=== PATIENT | female | born 1985 | race Asian ===

== ENCOUNTER 2018-12-24 00:56 | Inpatient (IN) | payer OTHER ==
[~2018-12-24] VITALS: Ht 152.4 cm; Wt 64.1 kg
[2018-12-24] MEDS ORDERED: NEWBORN KIT ONE (01:08)
[2018-12-24] MEDS ORDERED: OXYTOCIN 30U/ 0.9% NaCL 500ML 500 ML ONE (01:08)
[2018-12-24] MEDS ORDERED: MISOPROSTOL 200 MCG TABLET ONE (01:09)
[2018-12-24] MEDS ORDERED: LIDOCAINE 1%, 10ML ONE (01:09)
[2018-12-24] MEDS ORDERED: OXYTOCIN 30U/ 0.9% NaCL 500ML 500 ML IV ONE (01:11)
[2018-12-24] MEDS ORDERED: D5%-LACTATED RINGERS 1,000 ML IV SCH (01:11)
[2018-12-24] MEDS: LACTATED RINGERS 1,000 ML IV SCH ×3 (01:22→02:37)
[2018-12-24 01:25] VITALS: BP 129/87
[2018-12-24] MEDS ORDERED: ONDANSETRON 2MG/ML, 2ML IVPush PRN (01:30)
[2018-12-24] MEDS ORDERED: METOCLOPRAMIDE 5 MG/ML, 2ML IVPush PRN (01:30)
[2018-12-24] MEDS ORDERED: FENTANYL PF 100 MCG/2ML IV PRN (01:30)
[2018-12-24] MEDS ORDERED: PENICILLIN GK 5,000,000 UNITS in DEXTROSE 5% 100 ML IVPB ONE (01:30)
[2018-12-24] MEDS ORDERED: SODIUM CITRATE/CITRIC ACID 15 ML UDC PO PRN (01:30)
[2018-12-24] MEDS ORDERED: CALCIUM CARBONATE 500 MG TAB.CHEW PO PRN ×2 (01:30→05:30)
[2018-12-24] MEDS ORDERED: TERBUTALINE 1 MG/ML, 1ML IVPush PRN ×2 (01:30)
[2018-12-24] MEDS ORDERED: FENTANYL PF 100 MCG/2ML IVPush PRN (01:30)
[2018-12-24] MEDS ORDERED: TERBUTALINE 1 MG/ML, 1ML SQ PRN (01:30)
[2018-12-24] MEDS ORDERED: ALUMINUM/MAG/SIMETHICONE 30 ML UDC PO PRN (01:30)
[2018-12-24 01:32] LABS: BASOPHILS # (AUTO) 0.02 x10^3/uL (0-0.1); BASOPHILS % (AUTO) 0 % (0-1); EOSINOPHILS # (AUTO) 0.04 x10^3/uL (0-0.4); EOSINOPHILS % (AUTO) 1 % (1-7); LYMPHOCYTES # (AUTO) 1.22 x10^3/uL (1-3.4); LYMPHOCYTES % (AUTO) 19 % (22-44); MD NO; MEAN CORPUSCULAR HEMOGLOBIN 30.2 pg (27.0-34.8); MEAN CORPUSCULAR HGB CONC 33.9 g/dL (32.4-35.8); MEAN CORPUSCULAR VOLUME 89.1 fL (80-100); MEAN PLATELET VOLUME 10.3 fL (7.4-10.4); MONOCYTES # (AUTO) 0.48 x10^3/uL (0.2-0.8); MONOCYTES % (AUTO) 7 % (2-9); NEUTROPHILS # (AUTO) 4.75 x10^3/uL (1.8-6.8); NEUTROPHILS % (AUTO) 73 % (42-75); PLATELET COUNT 184 x10^3/uL (130-400); RED BLOOD COUNT 4.13 x10^6/uL (3.82-5.3); RED CELL DISTRIBUTION WIDTH 13.9 % (9.6-15.2)
[2018-12-24] MEDS ORDERED: FENTANYL/BUPIV./NS/PF 250 ML EPIDCONT ONE (01:44)
[2018-12-24] MEDS ORDERED: LACTATED RINGERS 1,000 ML IV SCH (01:53)
[2018-12-24] MEDS ORDERED: FENTANYL/BUPIV./NS/PF 250 ML EPIDCONT SCH (01:53)
[2018-12-24] MEDS ORDERED: BUPIVACAINE 0.25% ONE (01:56)
[2018-12-24] MEDS ORDERED: NALOXONE 0.4 MG/ML, 1ML IVPush PRN (02:00)
[2018-12-24] MEDS ORDERED: LACTATED RINGERS 1,000 ML IVBOLUS PRN (02:00)
[2018-12-24] MEDS ORDERED: EPHEDRINE 50 MG/ML, 1ML IVPush PRN (02:00)
[2018-12-24] MEDS: OXYTOCIN 30U/ 0.9% NaCL 500ML 500 ML IV SCH ×2 (05:04→15:04)
[2018-12-24] MEDS ORDERED: MISOPROSTOL 200 MCG TABLET PR PRN (05:30)
[2018-12-24] MEDS ORDERED: OXYcodone/APAP 5/325MG TABLET PO PRN (05:30)
[2018-12-24] MEDS ORDERED: IBUPROFEN 600 MG TABLET PO PRN (05:30)
[2018-12-24] MEDS ORDERED: MAGNESIUM HYDROXIDE 8%, 30ML UDC PO PRN (05:30)
[2018-12-24] MEDS ORDERED: METHYLERGONOVINE 0.2 MG/ML IM PRN (05:30)
[2018-12-24] MEDS ORDERED: PENICILLIN GK 2,500,000 UNITS in DEXTROSE 5% 100 ML IVPB SCH (05:30)
[2018-12-24 07:30] VITALS: BP 121/72
[2018-12-24] MEDS: DOCUSATE 100 MG CAPSULE PO PRN (09:45)
[2018-12-24] MEDS: PRENATAL VIT/IRON/FA 1 EACH TABLET PO SCH (09:45)
[2018-12-24 12:00] VITALS: BP 120/70
[2018-12-24 12:54] LABS: BASOPHILS # (AUTO) 0.06 x10^3/uL (0-0.1); BASOPHILS % (AUTO) 1 % (0-1); EOSINOPHILS # (AUTO) 0.01 x10^3/uL (0-0.4); EOSINOPHILS % (AUTO) 0 % (1-7); LYMPHOCYTES # (AUTO) 0.76 x10^3/uL (1-3.4); LYMPHOCYTES % (AUTO) 7 % (22-44); MD NO; MEAN CORPUSCULAR HEMOGLOBIN 29.3 pg (27.0-34.8); MEAN CORPUSCULAR HGB CONC 33.2 g/dL (32.4-35.8); MEAN CORPUSCULAR VOLUME 88.4 fL (80-100); MEAN PLATELET VOLUME 10.4 fL (7.4-10.4); MONOCYTES # (AUTO) 0.56 x10^3/uL (0.2-0.8); MONOCYTES % (AUTO) 5 % (2-9); NEUTROPHILS # (AUTO) 9.38 x10^3/uL (1.8-6.8); NEUTROPHILS % (AUTO) 87 % (42-75); PLATELET COUNT 155 x10^3/uL (130-400)
[2018-12-24 16:59] VITALS: BP 122/79
[2018-12-24 19:35] VITALS: BP 110/59
[2018-12-25 00:15] VITALS: BP 104/66
[2018-12-25 08:00] VITALS: BP 116/74
[2018-12-25 20:15] VITALS: BP 120/85
[2018-12-25] MEDS: PRENATAL VIT/IRON/FA 1 EACH TABLET PO SCH (22:43)
[2018-12-26 07:20] VITALS: BP 108/67
[2018-12-26] MEDS: DOCUSATE 100 MG CAPSULE PO PRN (10:02)
[2018-12-26] MEDS: PRENATAL VIT/IRON/FA 1 EACH TABLET PO SCH (10:02)
== END 2018-12-26 11:25 | disposition home or self-care (01) | DRG 807 ==
LOC: LDOP 00:56 → LDIP 01:26 → 2NW 06:22 → EDSTATUS 12-28 00:55
PROVIDERS: ADMIT Obstetrics & Gynecology; ATTEND Obstetrics & Gynecology
PROC: 10E0XZZ Delivery of Products of Conception, External Approach (ICD-10-PCS; principal; 2018-12-25)
PROC: 00HU33Z Insertion of Infusion Device into Spinal Canal, Percutaneous Approach (ICD-10-PCS; 2018-12-25)
PROC: 3E0R3BZ Introduction of Anesthetic Agent into Spinal Canal, Percutaneous Approach (ICD-10-PCS; 2018-12-25)
DX: O99.824 Streptococcus B carrier state complicating childbirth (principal); Z37.0 Single live birth; N89.8 Other specified noninflammatory disorders of vagina; O34.63 Maternal care for abnormality of vagina, third trimester; O10.02 Pre-existing essential hypertension complicating childbirth; Z3A.39 39 weeks gestation of pregnancy; Z80.41 Family history of malignant neoplasm of ovary; Z82.49 Family history of ischemic heart disease and other diseases of the circulatory system; Z83.3 Family history of diabetes mellitus
CPT/HCPCS: 36415; 85025; 86850; 86900; G0378; J2540; J2590; J3010; J7120

== ENCOUNTER 2020-01-09 06:51 | Outpatient (CLI) | payer OTHER | END 2020-01-09 23:59 | disposition home or self-care (01) | LOC: RAD 06:51 | PROVIDERS: ATTEND Obstetrics & Gynecology Maternal & Fetal Medicine | DX: Z3A.34 34 weeks gestation of pregnancy (principal); O32.2XX0 Maternal care for transverse and oblique lie, not applicable or unspecified; O28.3 Abnormal ultrasonic finding on antenatal screening of mother | CPT/HCPCS: 72195 ==

== ENCOUNTER 2020-02-09 05:56 | Inpatient (IN) | payer OTHER ==
[~2020-02-09] VITALS: Ht 152.4 cm; Wt 65.9 kg
[2020-02-09] MEDS ORDERED: OXYTOCIN 30U/ 0.9% NaCL 500ML 500 ML IV ONE (06:11)
[2020-02-09] MEDS: D5%-LACTATED RINGERS 1,000 ML IV SCH ×2 (06:11→14:11)
[2020-02-09] MEDS ORDERED: FENTANYL/BUPIV./NS/PF 250 ML EPIDCONT SCH (06:16)
[2020-02-09] MEDS ORDERED: LIDOCAINE 1%, 20ML ONE (06:20)
[2020-02-09] MEDS: LACTATED RINGERS 1,000 ML IV SCH ×3 (06:20→08:10)
[2020-02-09] MEDS ORDERED: OXYTOCIN 30U/ 0.9% NaCL 500ML 500 ML ONE (06:20)
[2020-02-09] MEDS ORDERED: MISOPROSTOL 200 MCG TABLET ONE (06:20)
[2020-02-09] MEDS ORDERED: NEWBORN KIT ONE (06:20)
[2020-02-09] MEDS ORDERED: TERBUTALINE 1 MG/ML, 1ML IVPush PRN (06:30)
[2020-02-09] MEDS ORDERED: TERBUTALINE 1 MG/ML, 1ML SQ PRN (06:30)
[2020-02-09] MEDS ORDERED: FENTANYL PF 100 MCG/2ML IVPush PRN (06:30)
[2020-02-09] MEDS ORDERED: FENTANYL PF 100 MCG/2ML IV PRN (06:30)
[2020-02-09] MEDS ORDERED: FENTANYL/BUPIV./NS/PF 250 ML EPIDCONT ONE (06:34)
[2020-02-09 06:39] LABS: BASOPHILS # (AUTO) 0.06 x10^3/uL (0-0.1); BASOPHILS % (AUTO) 1 % (0-1); EOSINOPHILS # (AUTO) 0.15 x10^3/uL (0-0.4); EOSINOPHILS % (AUTO) 2 % (1-7); LYMPHOCYTES # (AUTO) 1.18 x10^3/uL (1-3.4); LYMPHOCYTES % (AUTO) 13 % (22-44); MD NO; MEAN CORPUSCULAR HEMOGLOBIN 30.4 pg (27.0-34.8); MEAN CORPUSCULAR HGB CONC 33.4 g/dL (32.4-35.8); MEAN CORPUSCULAR VOLUME 90.9 fL (80-100); MEAN PLATELET VOLUME 10.7 fL (7.4-10.4); MONOCYTES # (AUTO) 0.56 x10^3/uL (0.2-0.8); MONOCYTES % (AUTO) 6 % (2-9); NEUTROPHILS # (AUTO) 7.42 x10^3/uL (1.8-6.8); NEUTROPHILS % (AUTO) 79 % (42-75); PLATELET COUNT 173 x10^3/uL (130-400); RED BLOOD COUNT 3.98 x10^6/uL (3.82-5.3); RED CELL DISTRIBUTION WIDTH 13.8 % (9.6-15.2)
[2020-02-09 06:52] LABS: ALBUMIN 2.4 g/dL (3.4-5.0); CALCIUM 8.9 mg/dL (8.5-10.1); CHLORIDE 108 mmol/L (98-107)
[2020-02-09 06:57] LABS: ALANINE AMINOTRANSFERASE 13 U/L (12-78); ALKALINE PHOSPHATASE 100 U/L (45-117); ANION GAP 8 mmol/L (5-15); BILIRUBIN,TOTAL 0.3 mg/dL (0.2-1.0); CREATININE 0.69 mg/dL (0.55-1.02); TOTAL PROTEIN 6.9 g/dL (6.4-8.2)
[2020-02-09 06:58] LABS: BILIRUBIN, DIRECT < 0.1 mg/dL (0.1-0.2)
[2020-02-09] MEDS ORDERED: BUPIVACAINE 0.25% ONE (07:05)
[2020-02-09] MEDS ORDERED: FENTANYL PF 100 MCG/2ML ONE (07:05)
[2020-02-09] MEDS ORDERED: LIDOCAINE/PF 1.5%-EPI 1:200K, 30ML ONE (07:07)
[2020-02-09] MEDS ORDERED: PENICILLIN GK 5,000,000 UNITS in DEXTROSE 5% 100 ML IVPB ONE (08:00)
[2020-02-09 08:52] LABS: MICROSCOPIC NOT IND
[2020-02-09 09:04] LABS: CREATININE,URINE RANDOM < 13.00 mg/dL; PROTEIN/CREATININE RATIO,URINE < 385 (0-200); TOTAL PROTEIN,URINE RANDOM < 5 mg/dL (0-12)
[2020-02-09] MEDS: OXYTOCIN 30U/ 0.9% NaCL 500ML 500 ML IV SCH ×2 (10:44→20:44)
[2020-02-09] MEDS ORDERED: ONDANSETRON 2MG/ML, 2ML IV PRN (11:00)
[2020-02-09] MEDS ORDERED: MISOPROSTOL 200 MCG TABLET PR PRN (11:00)
[2020-02-09] MEDS ORDERED: IBUPROFEN 600 MG TABLET PO PRN (11:00)
[2020-02-09] MEDS ORDERED: SIMETHICONE 80 MG CHEW TAB PO PRN (11:00)
[2020-02-09] MEDS ORDERED: OXYcodone/APAP 5/325MG TABLET PO PRN (11:00)
[2020-02-09] MEDS ORDERED: OXYcodone IR 5MG TABLET PO PRN (11:00)
[2020-02-09] MEDS ORDERED: ACETAMINOPHEN 325 MG TABLET PO PRN (11:00)
[2020-02-09 13:00] VITALS: BP 128/82
[2020-02-09 17:00] VITALS: BP 100/66
[2020-02-09 20:10] LABS: BASOPHILS # (AUTO) 0.06 x10^3/uL (0-0.1); BASOPHILS % (AUTO) 1 % (0-1); EOSINOPHILS # (AUTO) 0.09 x10^3/uL (0-0.4); EOSINOPHILS % (AUTO) 1 % (1-7); LYMPHOCYTES # (AUTO) 0.94 x10^3/uL (1-3.4); LYMPHOCYTES % (AUTO) 8 % (22-44); MD NO; MEAN CORPUSCULAR HEMOGLOBIN 30.6 pg (27.0-34.8); MEAN CORPUSCULAR HGB CONC 33.8 g/dL (32.4-35.8); MEAN CORPUSCULAR VOLUME 90.6 fL (80-100); MEAN PLATELET VOLUME 10.4 fL (7.4-10.4); MONOCYTES # (AUTO) 0.64 x10^3/uL (0.2-0.8); MONOCYTES % (AUTO) 6 % (2-9); NEUTROPHILS # (AUTO) 9.38 x10^3/uL (1.8-6.8); NEUTROPHILS % (AUTO) 84 % (42-75); PLATELET COUNT 140 x10^3/uL (130-400); RED BLOOD COUNT 3.52 x10^6/uL (3.82-5.3); RED CELL DISTRIBUTION WIDTH 13.8 % (9.6-15.2)
[2020-02-09] MEDS: DOCUSATE 100 MG CAPSULE PO PRN (20:27)
[2020-02-09 20:46] VITALS: BP 105/66
[2020-02-10 00:10] VITALS: BP 119/70
[2020-02-10 04:00] VITALS: BP 100/68
[2020-02-10] MEDS: LACTATED RINGERS 1,000 ML IV SCH (06:01)
[2020-02-10] MEDS: OXYTOCIN 30U/ 0.9% NaCL 500ML 500 ML IV SCH (06:44)
[2020-02-10 09:00] VITALS: BP 92/61
[2020-02-10] MEDS: PRENATAL VIT/IRON/FA 1 EACH TABLET PO SCH (09:15)
[2020-02-10] MEDS: DOCUSATE 100 MG CAPSULE PO PRN (09:15)
[2020-02-10 19:54] VITALS: BP 107/51
[2020-02-11 07:00] VITALS: BP 117/87
[2020-02-11] MEDS: PRENATAL VIT/IRON/FA 1 EACH TABLET PO SCH (08:03)
[2020-02-11] MEDS: DOCUSATE 100 MG CAPSULE PO PRN (08:03)
[2020-02-11] MEDS ORDERED: IBUP-1222 PO (09:32)
== END 2020-02-11 12:33 | disposition home or self-care (01) | DRG 798 ==
LOC: LDOP 05:56 → LDIP 06:09 → 2NW 12:50
PROVIDERS: ADMIT Obstetrics & Gynecology; ATTEND Obstetrics & Gynecology
PROC: 0UB70ZZ Excision of Bilateral Fallopian Tubes, Open Approach (ICD-10-PCS; principal; 2020-02-09)
PROC: 10E0XZZ Delivery of Products of Conception, External Approach (ICD-10-PCS; 2020-02-09)
DX: O32.0XX0 Maternal care for unstable lie, not applicable or unspecified (principal); Z37.0 Single live birth; O43.123 Velamentous insertion of umbilical cord, third trimester; O36.5930 Maternal care for other known or suspected poor fetal growth, third trimester, not applicable or unspecified; O99.824 Streptococcus B carrier state complicating childbirth; Z30.2 Encounter for sterilization; Z3A.38 38 weeks gestation of pregnancy; Z80.41 Family history of malignant neoplasm of ovary; Z82.49 Family history of ischemic heart disease and other diseases of the circulatory system; Z83.3 Family history of diabetes mellitus
CPT/HCPCS: 36415; J3490; 80053; 81003; 82248; 82570; 84156; 84550; 85025; 86592; 86850; 86900; 87086; G0378; J2540; J3010; J7120